=== PATIENT | male | born 1995 | race Caucasian/White ===

== ENCOUNTER 2020-11-24 00:46 | Emergency (ER) | payer OTHER ==
[~2020-11-24] VITALS: Ht 182.9 cm; Wt 66.8 kg
[2020-11-24 01:02] VITALS: BP 129/85
--- NOTE | 2020-11-24 02:21 | NUR ---
PT WHEELED TO ROOM. HAS C/O PAIN AND SWELLING TO LEFT ANKLE, AFTER ROLLING IT, PER PT, AND HE HEARD A POP. XRAY HAS BEEN DONE.
== END 2020-11-24 03:17 | disposition home or self-care (01) ==
LOC: ED 02:00
DX: S93.492A Sprain of other ligament of left ankle, initial encounter (principal); W01.0XXA Fall on same level from slipping, tripping and stumbling without subsequent striking against object, initial encounter; Y93.89 Activity, other specified; Y92.69 Other specified industrial and construction area as the place of occurrence of the external cause; Y99.8 Other external cause status
CPT/HCPCS: 99283